=== PATIENT | female | born 1950 | race Caucasian/White ===

== ENCOUNTER 2020-11-28 11:00 | Day surgery (SDC) | payer MEDICARE, OTHER ==
[2020-11-28] VITALS (13 sets, daily range): BP systolic 109–146; BP diastolic 55–81
[~2020-11-28] VITALS: Ht 157.5 cm; Wt 103.1 kg
--- NOTE | 2020-11-28 09:31 | Diagnostic Imaging Report ---
INDICATION: Coronary artery disease, CHF COMPARISON: 07/09/2016 FINDINGS: Single view of the chest demonstrates stable cardiac enlargement. Lungs are clear. There is no pneumothorax. Sternal wires midline. IMPRESSION: Stable cardiac enlargement without pulmonary edema or acute infiltrate. Dictated by: Dictated on workstation # [id number]
[2020-11-28 09:35] LABS: BILIRUBIN,URINE NEGATIVE (NEGATIVE); CLARITY,URINE CLEAR; COLOR,URINE YELLOW; GLUCOSE, URINE (UA) 2+ (NEGATIVE); KETONES,URINE NEGATIVE (NEGATIVE); LEUKOCYTE ESTERASE ,URINE NEGATIVE (NEGATIVE); MEAN PLATELET VOLUME 10.1 fL (9.0-12.2); NITRITE,URINE NEGATIVE (NEGATIVE); PH,URINE 5.5 (5-9); PROTEIN,URINE NEGATIVE (NEGATIVE); WHITE BLOOD COUNT 5.8 10^3/uL (4.3-11.0)
[2020-11-28 09:38] LABS: HEMOGLOBIN 7.6 g/dL (11.5-16.0)
[2020-11-28 09:45] LABS: BACTERIA,URINE NEGATIVE /HPF
[2020-11-28 09:50] LABS: INR 0.9 (0.8-1.4); PROTHROMBIN TIME PATIENT 12.9 SEC (12.2-14.7)
[2020-11-28 09:59] LABS: ALBUMIN 4.2 GM/DL (3.2-4.5); BILIRUBIN,TOTAL 0.3 MG/DL (0.1-1.0); CALCIUM 9.1 MG/DL (8.5-10.1); CREATININE SERUM 1.31 MG/DL (0.60-1.30); POTASSIUM 3.7 MMOL/L (3.6-5.0); TOTAL PROTEIN 7.1 GM/DL (6.4-8.2)
--- NOTE | 2020-11-28 10:13 | Consultation - Surgery ---
PHYLLIS GRAY MED STUDENT 11/28/20 1013: History of Present Illness History of Present Illness Patient Consulted On(pamela/time) 11/28/20 10:07 Date Seen by Provider: Nov 28, 2020 Time Seen by Provider: 09:55 History of Present Illness Consult requested by Dr. Landa for anemia. Patient is alert and oriented x 4. States that she's unaware whether or not she's been anemic before. Her only com plaints currently is that she vomits once or twice a week after lying down in the evenings and is having some increased shortness of breath. Walking sometimes worsens the shortness of breath, sitting and lying alleviate the shortness of breath. This is sometimes proceeded by nausea. She states she eats supper earlier in the day to prevent this from happening. She states nothing makes this worse that she's noticed. Nothing seems to improve her symptoms, although she reports taking some "stomach medicine" on occasion. She denies pain. There are no other associated symptoms with vomiting. She denies hematemesis, hemoptysis, bright red blood in stool, dark black stools, epigastric abdominal pain, constipation, diarrhea, chest pain, and headaches. She does relay that a few years ago she had some dysphagia and had an EGD for that. She is Jehova's witness and refuses blood products. EGD planned for later today. Allergies and Home Medications Allergies Coded Allergies: No Known Drug Allergies (Unverified , 10/31/11) Home Medications Furosemide 40 Mg Tab, 40 MG PO DAILY, (Reported) Hydrochlorothiazide 12.5 Mg Tablet, 12.5 MG PO DAILY, (Reported) Lisinopril 20 Mg Tablet, 20 MG PO BID, (Reported) Potassium Chloride 20 Meq Tab.prt.sr, 20 MEQ PO DAILY, (Reported) Simvastatin 40 Mg Tablet, 40 MG PO DAILY, (Reported) Past Hcgyyla-Zupgvm-Hthcvw Hx Patient Social History Smoking Status: Never a Smoker Recent Hopitalizations: No Alcohol Use?: No Have you traveled recently?: No Immunizations Up To Date Tetanus Booster (TDap): Unknown Seasonal Allergies Seasonal Allergies: No Surgeries Surgeries: Abdominal (tummy tuck), CABG, Hysterectomy, Tonsillectomy Respiratory History of Respiratory Disorde: No Cardiovascular History of Cardiac Disorders: Yes Cardiac Disorders: Heart Attack, High Cholesterol, Hypertension Neurological History of Neurological Disord: No Reproductive System Hx Reproductive Disorders: No Female Reproductive Disorders: Denies ASSOCIATE ACCOUNTANT History: Hysterectomy Genitourinary History of Genitourinary Disor: No Gastrointestinal History of Gastrointestinal Di: Yes (DIVERTICULITIS) Gastrointestinal Disorders: Abdominal Hernia Musculoskeletal History of Musculoskeletal Dis: No Endocrine History of Endocrine Disorders: No HEENT History of HEENT Disorders: No Loss of Vision: Denies Hearing Impairment: Denies Cancer History of Cancer: No Psychosocial History of Psychiatric Problem: No Integumentary History of Skin or Integumenta: No Blood Transfusions History of Blood Disorders: No Adverse Reaction to a Blood Tr: No Family Medical History Significant Family History: Heart Disease Review of Systems-General Constitutional: No chills, No diaphoresis EENTM: No hearing loss, No blurred vision, No double vision Respiratory: No cough, No hemoptysis Cardiovascular: No chest pain, No palpitations Gastrointestinal: no symptoms reported; No abdominal pain, No constipation, No diarrhea, No dysphagia, No hematemesis, No heartburn; nausea, vomiting Genitourinary: no symptoms reported; No dysuria, No frequency : No Musculoskeletal: No back pain, No joint pain Skin: No change in color, No change in hair/nails Psychiatric/Neurological: Denies Anxiety, Denies Depressed All Other Systems Reviewed Negative Unless Noted: Yes (Negative excepted noted.) Physical Exam-General Problems Physical Exam Vital Signs Vital Signs - First Documented 11/28/20 09:24 Temp 36.6 Pulse 94 Resp 18 B/P (MAP) 126/62 (83) Pulse Ox 96 O2 Delivery Room Air Capillary Refill : General Appearance: WD/WN, no apparent distress Eyes: Bilateral Eye Normal Inspection, Bilateral Eye PERRL, Bilateral Eye EOMI HEENT: PERRL/EOMI, pharynx normal Neck: non-tender, full range of motion Respiratory: chest non-tender, lungs clear, normal breath sounds, no accessory muscle use Cardiovascular: normal peripheral pulses, regular rate, rhythm, no edema Peripheral Pulses: 2+ Dorsalis Pedis (R), 2+ Left Dors-Pedis (L), 2+ Radial Pulses (R), 2+ Radial Pulses (L) Gastrointestinal: normal bowel sounds, non tender, soft; No guarding, No rebound, No tenderness Rectal: deferred Back: no CVA tenderness, no vertebral tenderness Extremities: normal range of motion, non-tender, no pedal edema, no calf tenderness Neurologic/Psychiatric: no motor/sensory deficits, alert, normal mood/affect, oriented x 3 Skin: normal color, warm/dry Lymphatic: no adenopathy Data Review Labs Laboratory Tests 11/28/20 09:15: White Blood Count 5.8, Red Blood Count 3.76L, Hemoglobin 7.6L, Hematocrit 27L, Mean Corpuscular Volume 73L, Mean Corpuscular Hemoglobin 20L, Mean Corpuscular Hemoglobin Concent 28L, Red Cell Distribution Width 17.0H, Platelet Count 456H, Mean Platelet Volume 10.1, Prothrombin Time 12.9, INR Comment 0.9, Activated Partial Thromboplast Time 27, Urine Color YELLOW, Urine Clarity CLEAR, Urine pH 5.5, Urine Specific [place] >=1.030, Urine Protein NEGATIVE, Urine Glucose (UA) 2+H, Urine Ketones NEGATIVE, Urine Nitrite NEGATIVE, Urine Bilirubin NEGATIVE, Urine Urobilinogen 0.2, Urine Leukocyte Esterase NEGATIVE, Urine RBC (Auto) NEGATIVE, Urine RBC NONE, Urine WBC NONE, Urine Squamous Epithelial Cells 5-10, Urine Crystals NONE, Urine Bacteria NEGATIVE, Urine Casts PRESENT, Urine Hyaline Casts 10-25H, Urine Mucus SMALLH, Urine Culture Indicated NO, Sodium Level 136, Potassium Level 3.7, Chloride Level 98, Carbon Dioxide Level 25, Anion Gap 13, Blood Urea Nitrogen 20H, Creatinine 1.31H, Estimat Glomerular Filtration Rate 40, BUN/Creatinine Ratio 15, Glucose Level 380H, Calcium Level 9.1, Corrected Calcium 8.9, Total Bilirubin 0.3, Aspartate Amino Transf (AST/SGOT) 17, Alanine Aminotransferase (ALT/SGPT) 15, Alkaline Phosphatase 124, Total Protein 7.1, Albumin 4.2, Triglycerides Level 157H, Cholesterol Level 177, LDL Cholesterol Direct 106, VLDL Cholesterol 31, HDL Cholesterol 54 Radiology NAME: ROSAARTIS Jamal BERNSTEIN REC#: [id number] PT STATUS: [facility] : 1950 PHYSICIAN: KEYANA LANDA MD ADMIT DATE: 11/28/20/CATH Draft Date of Exam:11/28/20 CHEST 1 VIEW, AP/PA ONLY INDICATION: Coronary artery disease, CHF COMPARISON: 07/09/2016 FINDINGS: Single view of the chest demonstrates stable cardiac enlargement. Lungs are clear. There is no pneumothorax. Sternal wires midline. IMPRESSION: Stable cardiac enlargement without pulmonary edema or acute infiltrate. Dictated on workstation # [id number] Dict: 11/28/20924 Trans: 11/28/20929 [facility] [id number] Interpreted by: ASHISH CLARK Electronically signed by: Assessment/Plan Assessment/Plan Assessment/Plan Anemia- Hgb 7.6 Dyspnea on exertion HTN CAD HLP Obesity History of diverticulitis NPO EGD planned for later this afternoon Vitals per protocol Patient is Jehova's witness and refuses blood products SHERRY JACOB DO 11/28/20 1711: History of Present Illness History of Present Illness History of Present Illness Patient her for heart cath and hgb found to be 7.6. She does not recall any time of anemia before. Has reflux on occasion, along with nausea and emesis. Nothing seems to make symptoms come on and nothing really makes better. She has been on Zegrid before. Has shortness of breath at times. Does not have any abdominal pain. Never had a colonoscopy. Denies blood in stools. Denies n/v fever sweats chills or chest pain at this time. Allergies and Home Medications Allergies Coded Allergies: No Known Drug Allergies (Unverified , 10/31/11) Home Medications Furosemide 40 Mg Tab, 40 MG PO DAILY, (Reported) Hydrochlorothiazide 12.5 Mg Tablet, 12.5 MG PO DAILY, (Reported) Lisinopril 20 Mg Tablet, 20 MG PO BID, (Reported) Potassium Chloride 20 Meq Tab.prt.sr, 20 MEQ PO DAILY, (Reported) Simvastatin 40 Mg Tablet, 40 MG PO DAILY, (Reported) Patient Home Medication List Home Medication List Reviewed: Yes Past Ksdzkfb-Jeseej-Rmgveg Hx Reviewed Nursing Assessment Reviewed/Agree w Nursing PMH: Yes Family Medical History Significant Family History: No Pertinent Family Hx Review of Systems-General Constitutional: No chills, No diaphoresis EENTM: No hearing loss, No blurred vision, No double vision Respiratory: No cough, No hemoptysis Cardiovascular: No chest pain, No palpitations Gastrointestinal: No abdominal pain; nausea, vomiting Genitourinary: No dysuria, No frequency Musculoskeletal: No back pain, No joint pain Skin: No change in color, No change in hair/nails Psychiatric/Neurological: Denies Anxiety, Denies Depressed All Other Systems Reviewed Negative Unless Noted: Yes (Negative excepted noted.) Physical Exam-General Problems Physical Exam General Appearance: WD/WN, no apparent distress HEENT: PERRL/EOMI Neck: non-tender, full range of motion Respiratory: chest non-tender, no respiratory distress, no accessory muscle use Cardiovascular: normal peripheral pulses, regular rate, rhythm Gastrointestinal: non tender, soft; No guarding, No rebound Rectal: deferred Back: no CVA tenderness, no vertebral tenderness Extremities: normal range of motion, non-tender, no pedal edema, no calf tenderness Neurologic/Psychiatric: alert, normal mood/affect, oriented x 3 Skin: normal color Lymphatic: no adenopathy Assessment/Plan Assessment/Plan Assessment/Plan Anemia- Hgb 7.6 Dyspnea on exertion HTN CAD NPO EGD risks and benefits discussed and understands planned for later this afternoon per her request. She understands need for colonoscopy in near future as well. Vitals per protocol Patient is Jehova's witness and refuses blood products Supervisory-Addendum Brief Verification & Attestation Participated in pt care: history, MDM, physical Personally performed: exam, history, MDM, supervision of care Care discussed with: Medical Student Procedures: n/a Results interpretation: Verified all documentation Verification and Attestation of Medical Student E/M Service A medical student performed and documented this service in my presence. I reviewed and verified all information documented by the medical student and made modifications to such information, when appropriate. I personally performed the physical exam and medical decision making. Sherry Jacob, Nov 28, 2020,17:12 PHYLLIS GRAY MED STUDENT Nov 28, 2020 10:13 SHERRY JACOB DO Nov 28, 2020 17:11
[~2020-11-28 11:00] MED LIST: ACHD5005 PO; ALPR.5T PO; AMLO-250 PO; ASP81CT PO; ATOR80TA PO; ATR20T PO; CARV6.252 PO; CYCL-97 PO; FERR325C PO; FLAX340P PO; FRSM40T PO; HEParin (CATH LAB) 2,000 ML IV ONE; HYDR12.56 PO; LIDOCAINE 1% INJ 20 ML 20 ML VIAL ONE; LISI20TA PO; MIDAZOLAM 5 MG/5 ML (VERSED) VIAL ONE; NS IV 1000 ML 1,000 ML IV SCH; NS IV 1000 ML 1,000 ML ONE; OMEP1CAP10 PO; PANT40TA2 PO; POTA20TA15 PO; PRV20T PO; SIMV40TA25 PO; TRIA1CAP4 PO; fentaNYL INJ 100 MCG/2 ML AMP ONE
[2020-11-28] MEDS ORDERED: inSUlin (REGULAR) HUMAN 1 UNIT/0.01 ML (CHARGE PER UNIT) ONE (11:28)
[2020-11-28] MEDS ORDERED: NS IV 1000 ML 1,000 ML IV SCH (11:45)
[2020-11-28] MEDS ORDERED: PATIENT MAY USE OWN MEDS, ALL PO SCH (11:45)
--- NOTE | 2020-11-28 11:45 | Cardiac Procedure Note-CS/ASA ---
Pre-Procedure Note Pre-Op Procedure Note H&P Reviewed The H&P was reviewed, patient examined and no changes noted. Date H&P Reviewed: Nov 28, 2020 Time H&P Reviewed: 11:00 Conscious Sedation Pre-Proced Time 11:00 ASA Score 3 For ASA 3 and 4: Consider anesthesia and medical clearance. Also, for patients with a history of failed moderate sedation consider anesthesia. Airway Lungs Heart ASA score ASA 1: a normal healthy patient ASA 2: a patient with a mild systemic disease (mid diabetes, controlled hypertension, obesity x ASA 3: a patient with a severe systemic disease that limits activity (angina, COPD, prior Myocardial infarction) ASA 4: a patient with an incapacitating disease that is a constant threat to life (CHF, renal failure) ASA 5: a moribund patient not expected to survive 24 hrs. (ruptured aneurysm) ASA 6: a declared brain- patient whose organs are being harvested. For emergent operations, add the letter E after the classification Mallampati Classification Grade 3 Sedation Plan Analgesia, Amnesia, Plan communicated to team members, Discussed options with patient/fam, Discussed risks with patient/fam The patient is an appropriate candidate to undergo the planned procedure, sedation, and anesthesia. The patient immediately re-assessed prior to indication. KEYANA HORTON MD Nov 28, 2020 11:45 am
--- NOTE | 2020-11-28 11:47 | Discharge Inst-Post CATH ---
Discharge Inst-CATH/EP Problems Reviewed?: Yes Post Cardiac Cath/EP D/C Inst Follow Up/Plan Appointment with Dr. Landa's office in 2 to 4 weeks <b>CARDIAC CATH/EP PROCEDURE DISCHARGE INSTRUCTIONS</b> ACTIVITY * Go Home directly and rest. * Limit activity of the leg (or wrist if it was used) for 7 days including aer obics, swimming, jogging, bicycling, etc. * Restrict stair-climbing for 7 days if possible, if not, climb up with your non-cath leg, then bring together on the same step. * Avoid lifting, pushing, pulling or excessive movement of the affected extremi ty for 7 days. * Customary sexual activity may be resumed after 2 days-use caution not to use a position that strains or causes pain to the affected extremity. * No driving for 24 hours. * NO SMOKING. * Avoid straining for bowel movements for 7 days. * Gentle walking on level ground is allowed. * Returning to work will depend on the type of procedure and the results. Your doctor will discuss this with you. CALL YOUR DOCTOR FOR ANY OF THE FOLLOWING: *If bleeding from the puncture site occurs- Apply gentle pressure to site with clean cloth and call your doctor or EMS. * If a knot or lump forms under the skin, increases in size, or causes pain. * If bruising appears to be worsening or moving further down your leg instead of disappearing. * Temperature above 101 F. CARE OF YOUR GROIN INCISION; * Bruising or purple discoloration of the skin near the puncture site is common. * You may shower only, no bathtub bathing for 5 days. Be careful to avoid slipping as your leg may feel stiff. * If a closure device was used on your femoral artery, please see the attached guide regarding care of the device and your leg. * Leave dressing on FOR 24 hours. CARE OF YOUR WRIST INCISION; * Bruising or purple discoloration of the skin near the puncture site is common. * You may shower. * DO NOT submerge wrist. * Leave dressing on FOR 24 hours. KEYANA LANDA MD Nov 28, 2020 11:47 am
--- NOTE | 2020-11-28 11:51 | Cardiac Cath Report ---
Cardiac Cath Report Physician (s)/Highway Maintenance Technician (s) Physician KEYANA HORTON MD Pre-Procedure Diagnosis Pre-Procedure Diagnosis: Coronary artery disease, chest pain Post-Procedure Note Procedure Start Date: Nov 28, 2020 Name of Procedure: Left heart catheterization Vein graft angiogram GALINDO angiogram Findings/Procedure Note PROCEDURE NOTE: 70 years old lady with history of coronary artery disease, history of CABG, intolerant to stress test, has been having increasing chest pain, scheduled for cardiac catheterization possible PTCA After explaining the procedure to the patient, all pros and cons were explained, all questions were answered. The patient signed the consent and then she was placed on the cardiac catheterization laboratory. Groin was prepped SL fashion local anesthesia was used. Sheath placed in the right femoral artery. Elisha right and left catheter were used to access the coronary system.Vein Graft evaluated. GALINDO evaluated. Pigtail was used to access the left ventricular cavity. Left ventriculogram was not done, pressure was measured At the end of the procedure the sheath was removed. Closure device was deployed FINDINGS: Hemodynamics LV 100/12, end-diastolic pressure of 12 Aorta was measured prior to prolapsing through the left ventricle, no significant gradient was noted ANATOMY: Left Main has severe stenosis distally Left Anterior Descending severe stenosis in the mid LAD, GALINDO to LAD is patent with excellent flow distally Left Circumflex totally occluded obtuse marginal branch corrected with a patent vein graft to OM with excellent flow distally Right Coronory Artery is known to be occluded, patent vein graft to the right coronary artery GALINDO to LAD is patent with excellent flow distally Vein Graft angiogram showed 2 vein graft Vein graft to the right coronary artery is patent with excellent flow distally Vein graft to the obtuse marginal branch is patent with excellent flow distally LV Gram was not done, pressure was measured CONCLUSION: 1. Patent GALINDO to LAD, vein graft to the obtuse marginal branch and vein graft to the right coronary artery, [place] coronary artery disease with small vessel disease, did not change compared to the previous study 2. Normal left ventricular end-diastolic pressure DISCUSSION AND RECOMMENDATION: Patient will be scheduled for GI work-up for her evaluation for recurrent chest pain Anesthesia Type: Conscious Sedation Estimated blood loss (mL): 25 ml Contrast Amount: 25 ml Total Radiation Dose: 417 mGy Post-Procedure Diagnosis Post-operative diagnosis: Chest pain Coronary artery disease Hypertension Hyperlipidemia KEYANA HORTON MD Nov 28, 2020 11:50 am
[2020-11-28] MEDS ORDERED: LACTATED RINGERS 1,000 ML IV ONE (16:48)
[2020-11-28] MEDS ORDERED: ONDANSETRON 4 MG/2 ML (SDV) Z0FRAN ONE (16:55)
[2020-11-28] MEDS ORDERED: proPOfol 200 MG/20 ML (DIPRIVAN) VIAL IV ONE (16:55)
[2020-11-28] MEDS ORDERED: PANT40TA2 PO (17:29)
--- NOTE | 2020-11-28 17:30 | Discharge Inst-Simple/Standard ---
Discharge Inst-Standard Reconcile Patient Problems Problems Reviewed?: Yes Discharge Medications New, Converted or Re-Newed RX: Transmitted to Pharmacy Patient Instructions/Follow Up Plan of Care/Instructions/FU: Dr. Harrison 2 weeks. Activity as Tolerated: Yes Discharge Diet: Regular Diet SHERRY HARRISON DO Nov 28, 2020 17:30
--- NOTE | 2020-11-28 17:32 | Anesthesia-General Post-Op ---
MAC Patient Condition Mental Status/LOC: Same as Preop Cardiovascular: Satisfactory Nausea/Vomiting: Absent Respiratory: Satisfactory Pain: Controlled Complications: Absent Post Op Complications Complications None Follow Up Care/Instructions Patient Instructions None needed. Anesthesiology Discharge Order Discharge Order Patient is doing well, no complaints, stable vital signs, no apparent adverse anesthesia problems. No complications reported per nursing. ANIL PETERS CRNA Nov 28, 2020 17:32
--- NOTE | 2020-11-28 17:34 | Progress Note-Post Operative ---
Post-Operative Progess Note Surgeon (s)/Spray Machine Tender (s) Surgeon SHERRY JACOB DO Spray Machine Tender: na Pre-Operative Diagnosis anemia Post-Operative Diagnosis hiatal hernia, slight gastritis, esophagitis Procedure & Operative Findings Date of Procedure 11/28/20 Procedure Performed/Findings egd c biopsies Anesthesia Type per social welfare administrator Estimated Blood Loss Estimated blood loss (mL): none Specimens/Packing Specimens Removed antrum, ge SHERRY JACOB DO Nov 28, 2020 17:33
[2020-11-28] MEDS ORDERED: HURRICAINE EXT TUBE (BENZOCAINE) XX PRN (17:45)
[2020-11-28] MEDS ORDERED: LACTATED RINGERS 1,000 ML IV STA (17:45)
--- NOTE | 2020-11-28 21:07 | OPERATIVE REPORT ---
DATE OF SERVICE: 11/28/2020 PREOPERATIVE DIAGNOSIS: Anemia. POSTOPERATIVE DIAGNOSES: Hiatal hernia, slight gastritis, esophagitis. PROCEDURE: EGD with biopsy. SURGEON: Sherry Harrison DO ANESTHESIA: Per HEARING HEALTH TECHNICIAN. ESTIMATED BLOOD LOSS: None. COMPLICATIONS: None. SPECIMENS: Antrum, GE junction. INDICATIONS: The patient is a 70-year-old female who was found to have anemic. She wished to have EGD performed today. She understands risks and benefits of procedure and wishes to proceed. Consent was signed in the chart. DESCRIPTION OF PROCEDURE: The patient was taken to the endoscopy suite, placed in left lateral recumbent position. Timeout was performed. Scope was inserted in mouth, down the esophagus, stomach and into the duodenum without difficulty. There were no polyps, masses or ulcerations within the duodenum. Scope was slowly retracted back into the stomach where it was further insufflated. Slight changes of gastritis were present. May be a small side of a healing ulcer. Scope was retroflexed noting some small benign appearing polyps, moderate sized hiatal hernia, no other pathology. Scope was returned to its normal position, slowly withdrawn to distal esophagus, distal esophagus had changes of some slight esophagitis. No polyps, masses or ulcerations. Biopsy of GE junction was obtained. Scope was then slowly retracted back to completely remove, noting no other pathology. The patient tolerated procedure well without any complications. She was taken to recovery room in stable condition. RECOMMENDATIONS: The patient will be started on Protonix 40 mg daily and see if any improvement. She has never had a colonoscopy, so I would recommend a colonoscopy to be performed in the near future for further evaluation of her anemia. Any change in condition, she should be reevaluated at that time. Job ID: [id number] DocumentID: [id number] Dictated Date: 11/28/2020 17:36:20 Chemistry Professor Date: 11/28/2020 21:06:26 Dictated By: SHERRY HARRISON DO
== END 2020-11-28 17:23 | disposition home or self-care (01) ==
LOC: CATH 11:00 → SDC 12:48 → CATH 17:23
PROVIDERS: ATTEND Internal Medicine Cardiovascular Disease
DX: K44.9 Diaphragmatic hernia without obstruction or gangrene (principal); K20.90 Esophagitis, unspecified without bleeding; D64.9 Anemia, unspecified; K29.70 Gastritis, unspecified, without bleeding; I25.10 Atherosclerotic heart disease of native coronary artery without angina pectoris; I10 Essential (primary) hypertension; E78.5 Hyperlipidemia, unspecified; E78.00 Pure hypercholesterolemia, unspecified; E78.2 Mixed hyperlipidemia; I65.23 Occlusion and stenosis of bilateral carotid arteries; E66.9 Obesity, unspecified; Z68.41 Body mass index [BMI] 40.0-44.9, adult; Z79.899 Other long term (current) drug therapy; Z95.1 Presence of aortocoronary bypass graft; Z90.710 Acquired absence of both cervix and uterus
CPT/HCPCS: 43239; 71045; 80053; 80061; 81000; 82962; 85027; 85610; 85730; 87081; 93005; 93459; C1760; C1894; 36415; 88305

== ENCOUNTER → 2022-11-05 | Outpatient (CLI) | payer MEDICARE, OTHER ==
[~2022-11-05] MED LIST changes: -HEParin (CATH LAB) 2,000 ML IV ONE; -LIDOCAINE 1% INJ 20 ML 20 ML VIAL ONE; -MIDAZOLAM 5 MG/5 ML (VERSED) VIAL ONE; -NS IV 1000 ML 1,000 ML IV SCH; -NS IV 1000 ML 1,000 ML ONE; -fentaNYL INJ 100 MCG/2 ML AMP ONE
== END ==
LOC: CARD 09:44
PROVIDERS: ATTEND Internal Medicine Cardiovascular Disease
DX: I11.9 Hypertensive heart disease without heart failure (principal)
CPT/HCPCS: 93306